=== PATIENT | male | born 2005 | race African-American/Black ===

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

== ENCOUNTER 2025-03-22 17:01 | Emergency (ER) | payer OTHER ==
--- NOTE | 2025-03-22 17:17 | ERPHSYRPT ---
- History of Present Illness Time Seen by Provider: 03/22/25 17:17 Source: patient, family Exam Limitations: no limitations Physician History: This is a 19-year-old male patient who arrives via private vehicle with the complaint of sore throat. In talking to him he states that his girlfriend recently was diagnosed with E. coli infection and was on 5 days of antibiotics. The patient denies dysuria and he denies penile discharge. He does state that the patient was not finished with her antibiotics and he provided her with oral sex and he stated the next morning he woke up with a sore throat. He has not had a fever. He does have mild loose stools. He has no abdominal pain. He has no vomiting. He does state that his joints and muscles ache. He also stated to me that he did not want to wait for a chlamydia or gonorrhea test. He also did not want to wait for viral swabs as they would take too long. He wants some type of antibiotic that will cover his symptoms. Timing/Duration: abrupt onset Severity: mild (To moderate) ENT Location: throat Modifying Factors: Improves With: other (Hurts to swallow) Associated Symptoms: sore throat, No fever, No swollen glands, No tooth pain, No difficulty swallowing, No voice change Allergies/Adverse Reactions: No Known Drug Allergies Allergy (Verified 03/22/25 17:21) Home Medications: Dextroamphetamine/Amphetamine [Adderall Xr 20 mg Capsule] 20 mg PO BID 03/22/25 [History] Hx Tetanus, Diphtheria Vaccination/Date Given: No Hx Influenza Vaccination/Date Given: No Hx Pneumococcal Vaccination/Date Given: No Travel Risk - International Travel Have you traveled outside of the country in past 3 weeks: No - Emerging Infectious Disease Are you exhibiting symptoms associated with any current EIDs: Yes Symptoms: Joint Pain, Other (Please Comment) (Sore throat) - Review of Systems Constitutional: No Symptoms Eyes: No Symptoms Ears, Nose, & Throat: No Symptoms Respiratory: No Symptoms Cardiac: No Symptoms Abdominal/Gastrointestinal: No Symptoms Genitourinary Symptoms: No Symptoms Musculoskeletal: No Symptoms Skin: No Symptoms Neurological: No Symptoms Psychological: No Symptoms Endocrine: No Symptoms Hematologic/Lymphatic: No Symptoms Immunological/Allergic: No Symptoms All Other Systems: Reviewed and Negative - Past Medical History Pertinent Past Medical History: No Neurological History: No Pertinent History ENT History: No Pertinent History Cardiac History: No Pertinent History Respiratory History: No Pertinent History Endocrine Medical History: No Pertinent History Musculoskeletal History: No Pertinent History GI Medical History: No Pertinent History History: No Pertinent History Psycho-Social History: Attention Deficit Disorder Male Reproductive Disorders: No Pertinent History Other Medical History: None - Past Surgical History Past Surgical History: No Neuro Surgical History: No Pertinent History Cardiac: No Pertinent History Respiratory: No Pertinent History Gastrointestinal: No Pertinent History Genitourinary: No Pertinent History Musculoskeletal: No Pertinent History Male Surgical History: No Pertinent History - Social History Smoking Status: Never smoker Exposure to second hand smoke: Yes Drug Use: none Patient Lives Alone: No - Nursing Vital Signs Nursing Vital Signs: Initial Vital Signs Temperature 100.5 F 03/22/25 17:12 Pulse Rate 91 H 03/22/25 17:12 Blood Pressure 135/79 03/22/25 17:12 O2 Sat by Pulse Oximetry 99 03/22/25 17:12 Pain Scale Pain Intensity 7 - Physical Exam General Appearance: no apparent distress, alert, anxiety Eye Exam: bilateral eye: normal inspection, PERRL, EOMI Ear Exam: bilateral ear: auricle normal Nasal Exam: normal inspection Throat Exam: moist mucus membranes, pharynx tenderness (With associated pharyngeal redness) Neck Exam: normal inspection, non-tender, supple, full range of motion, trachea midline Cardiovascular/Respiratory Exam: chest non-tender, normal breath sounds, regular rate/rhythm, heart sounds normal, no respiratory distress Abdominal Exam: non-tender Neurologic Exam: alert, oriented x 3, cooperative, biotech production specialist II-XII nml as tested, nml cerebellar function, nml station & gait, sensation nml Skin Exam: normal color, warm, dry SpO2 Interpretation: normal O2 Delivery: Room Air - Course Nursing assessment & vital signs reviewed: Yes - Progress Progress: unchanged Progress Note: 03/22/25 18:14 My medical decision making and the assignment of low complexity of this patient's medical issue today is based on review of the patient's past medical history, review the patient's medication list, review the patient drug allergy list, history present illness and physical findings on examination. The workup in this patient includes viral swabs and urinalysis including chlamydia and gonorrhea. However, the patient declines the chlamydia and gonorrhea portion. He also declines the viral swabs and group A strep test. He does not want to wait for the results of the testing. He is not having penile discharge. However we agreed that we would provide him with the Rocephin intramuscular injection here in the emergency department followed by outpatient doxycycline and azithromycin. This will cover urinary tract infection, chlamydia and gonorrhea if present. Differential diagnosis includes was not limited to urinary tract infection, chlamydial infection, gonorrheal infection, strep pharyngitis, viral pharyngitis Counseled pt/family regarding: diagnosis, need for follow-up Medical Desision Making - Diagnostic Testing Diagnostic test were ordered, analyzed, and reviewed by me: Yes - Risk of complications Low Risk: Low risk of morbidity from additional dx testing or treatment The pt has a mod risk of morbidity or mortality based on: Need for prescription drug management - Departure Departure Disposition: Home Clinical Impression: Pharyngitis Condition: Stable Critical Care Time: No Referrals: ALEYDA DONG NP [Primary Care Provider, [facility]] - Follow up/PCP as directed Additional Instructions: Drink plenty of liquids. Take your medications as prescribed. Call your primary care provider tomorrow, 03/23/2025, to make arrangements for follow-up appointment to be seen in the next 2 to 3 days. Prescriptions: Prednisone 5 mg [Deltasone 5 mg] 5 mg PO TID #12 tablet Doxycycline Hyclate 100 mg [Vibramycin 100 MG] 100 mg PO BID #14 tab Azithromycin 250 mg [Zithromax 250 MG TABLET] 250 mg PO ZPACK #6 tablet
[2025-03-22 17:21] VITALS: PULSE 91; TEMP 100.5
[2025-03-22 18:26] VITALS: O2SAT 100
[2025-03-22] MEDS ORDERED: Rocephin 1000 MG INJ ONE (18:28)
[2025-03-22] MEDS: Rocephin 1000 MG INJ IM ONE (18:33)
[2025-03-22 18:37] VITALS: BP 125/74
== END 2025-03-22 18:50 | disposition home or self-care (01) ==
LOC: ED 17:01
DX: J02.9 Acute pharyngitis, unspecified (principal); Z79.899 Other long term (current) drug therapy; Z79.52 Long term (current) use of systemic steroids